=== PATIENT | male | born 1970 | race Caucasian/White ===

== ENCOUNTER 2025-01-05 05:35 | Emergency (ER) | payer BC ==
[~2025-01-05] VITALS: Ht 177.8 cm; Wt 108.9 kg
[2025-01-05 07:14] LABS: BASO # 0.0 10^3/uL (0.0-0.2); BASO % 0.8 % (0.0-1.0); EOS # 0.0 10^3/uL (0.0-0.5); EOS % 0.4 % (0.0-3.0); LYMPH # 1.4 10^3/uL (1.5-5.0); LYMPH % 30.2 % (24.0-44.0); MONO # 0.6 10^3/uL (0.0-0.8); MONO % 12.8 % (2.0-8.0); NEUTROPHILS # 2.6 10^3/uL (1.5-8.5); NEUTROPHILS % 55.2 % (36.0-66.0)
[2025-01-05 07:32] LABS: CALCIUM LEVEL 8.6 MG/DL (8.5-10.1); CARBON DIOXIDE LEVEL 23.0 MMOL/L (20-31); CHLORIDE LEVEL 103.0 MMOL/L (98-107); CREATININE FOR GFR 1.01 MG/DL (0.70-1.30); GLOMERULAR FILTRATION RATE 88.9 (>56); POTASSIUM SERUM 3.8 MMOL/L (3.5-5.1); SODIUM LEVEL 137.0 MMOL/L (136-145)
[2025-01-05 07:56] LABS: PLATELET COUNT, AUTOMATED 83 10^3/uL (150-450)
[2025-01-05] MEDS ORDERED: ACET-683 PO (09:24)
[2025-01-05] MEDS ORDERED: HOME MED LIST COMPLETE! XX SCH (09:25)
[2025-01-05 10:06] LABS: ALT/SGPT 70.0 U/L (7.0-40); AST/SGOT 43.0 U/L (<34)
[2025-01-05 10:09] LABS: INR 1.12
[2025-01-05] MEDS ORDERED: ISOVUE-370 76% 100 ML VIAL As Ordered ONE (10:43)
[2025-01-05 12:15] VITALS: BP 116/69; TEMP 99.3; O2SAT 96
== END 2025-01-05 12:25 | disposition home or self-care (01) ==
LOC: M ED 05:35
DX: D69.3 Immune thrombocytopenic purpura (principal); R16.1 Splenomegaly, not elsewhere classified
CPT/HCPCS: 74177; 80047; 80048; 80076; 85025; 85049; 85055; 85610; 85730; 99284; Q9967